=== PATIENT | female | born 2000 | race Caucasian/White ===

== ENCOUNTER 2024-01-18 18:50 | Emergency (ER) | payer OTHER, SELFPAY ==
[2024-01-18] VITALS (7 sets, daily range): BP systolic 106–121; BP diastolic 52–70; PULSE 71–79; RESP 18; TEMP 36.7; O2SAT 98–100; BMI 24.9
--- NOTE | ~2024-01-18 | CT_ITS ---
EXAMINATION: CT HEAD WITHOUT CONTRAST CLINICAL INFORMATION: Frontal headache. Vomiting. COMPARISON: None available. TECHNIQUE: Contiguous axial imaging was performed from the skull base to vertex without intravenous administration of contrast. This CT examination was performed using dose optimization techniques as appropriate, variously including the following: *Automated exposure control. *Adjustment of mA and/or kV according to patient size (this includes techniques or standardized protocols for targeted exams where dose is matched to indication/reason for exam; i.e. extremities or head). *Use of iterative reconstruction technique. DLP: 605 mGy-cm FINDINGS: There is no evidence of acute intracranial hemorrhage or edematous territorial infarction. James-white matter differentiation is preserved. There is no abnormal attenuation within the brain parenchyma. The ventricles are normal in morphology and size. No evidence for obstructive hydrocephalus. The suprasellar cistern remains widely patent. Normal positioning of the cerebellar tonsils. No abnormal mass effect or midline shift. No extra-axial fluid collections. No acute soft tissue or osseous abnormalities. The mastoid air cells and visualized paranasal sinuses are clear. CT/CT head/brain wo IV con IMPRESSION: No evidence of acute intracranial hemorrhage or edematous territorial infarction. Electronically signed by: Dov Arvizu DO 01/18/2024 10:53 PM EDT
--- NOTE | 2024-01-18 19:28 | ED.DIZZY ---
HPI - Dizziness General Chief Complaint: General Medical Stated Complaint: dizzy Time Seen by Provider: 01/18/24 21:02 Source: patient, RN notes reviewed and old records reviewed Mode of arrival: ambulatory Limitations: no limitations History of Present Illness ED Provider: Amanda BELTRAN Narrative: 23-year-old female who denies any past medical history presents for evaluation of headache and dizziness. Patient reports around 1:00 p.m. today she developed a frontal headache with associated dizziness, nausea and vomiting. She reports that yesterday she had some body aches and a nonproductive cough. The patient reports that around 4:00 p.m. today, she ?could not move my left arm. ? She reports that this lasted about 10 minutes before completely resolving. She reports a similar episode of headache, nausea and vomiting about a year ago. She reports at that time she fell and hit her head, there was no fall or trauma prior to today's episode She reports that her nausea and vomiting has resolved but still complains of a frontal headache with some dizziness when standing She has no other complaints or concerns at this time Related Data Allergies Allergy/AdvReac Type Severity Reaction Status Date / Time No Known Allergies Allergy Verified 01/18/24 19:29 [No Known Allergies*] Review of Systems Constitutional: Constitutional: Denies body ache(s), Denies chills, Denies fever(s), Denies frequent falls and Reports headache(s) Eyes: Eyes: Denies blurry vision and Denies loss of vision ENT: Reports dizziness, Denies dry mouth and Reports headache(s) Cardiovascular: Cardiovascular: Denies chest pain, Denies syncope and Denies dyspnea Respiratory: Respiratory: Denies cough and Denies dyspnea Gastrointestinal: Gastrointestinal: Denies abdominal pain, Reports nausea and Reports vomiting Musculoskeletal: Musculoskeletal: Denies back pain Integumentary/Breasts: Skin/Breast: Denies rash Neurologic: Denies confusion, Reports dizziness, Denies syncope, Denies frequent falls, Reports headache(s), Denies focal weakness, Denies loss of vision and Denies memory loss Psychiatric: Psychiatric: Denies confusion and Denies memory loss [facility] Social History Social History Smoked in Last 30 Days: No Use of substances other than those prescribed or required for medical reasons: No Advance Directives: No Advance Directives Information Provided: No Do you have a plan to hurt others: No Plan Patient : No Physical Exam Vital Signs: Vital Signs: Last Vital Signs Temp 98.0 F 01/18/24 19:27 Pulse 76 01/18/24 21:41 Resp 18 01/18/24 21:41 BP 121/62 01/18/24 21:41 Pulse Ox 98 01/18/24 21:41 O2 Del Method Room Air 01/18/24 21:41 BMI result Body Mass Index 24.9 Const: General: No confusion Nutritional Appearance: well nourished Orientation/consciousness: No confusion HEENT: Head: Yes normocephalic and Yes atraumatic Throat: Yes posterior oropharynx normal Eyes: Eyelids: Yes eyelids normal Conjunctivae: conjunctivae normal Sclerae: sclerae normal Corneas: corneas normal Pupils: Equal, round and reactive pupils present EOM: EOMs intact bilaterally Neck: Neck: Yes full ROM Resp: Effort & Inspection: normal respiratory effort, able to speak in complete sentences, no audible wheezes and not labored Auscultation: clear to auscultation bilaterally GI: Inspection: No distended Palpation (GI): Soft to palpation, not firm, nontender, no guarding and not rigid Skin: General skin exam: no rashes or lesions noted and elasticity normal Neuro: General: No confusion Cranial nerves: Yes CN's II-XII intact bilaterally, Yes Equal, round and reactive pupils present and Yes Bilaterally intact EOM present Cognition (Neuro): normal cognition Motor exam (neuro): 5/5 motor strength present throughout Coordination: [id number] test normal and tandem gait normal Romberg Test: Negative Course Course Course Narrative: This is a Rapid Medical Exam performed in triage by Bri Jean-Baptiste PA-C. Full HPI, ROS and PE to be performed by primary ED provider. 23 yo F presenting to the ED c/o dizziness described spinning, nausea, vomiting and shakiness x 1300 today while at work. Also reports cough w/post tussive emesis, headache & sick contacts. denies abd pain PE: pale, uncomfortable, no focal deficits, ambulating with steady gait, abdomen soft/nontender Plan: EKG, labs, UA, viral testing Medications Administered Discontinued Medications Generic Name Dose Route Start Last Admin Trade Name Freq PRN Reason Stop Dose Admin Acetaminophen/Butalbital/Caffeine 1 tab 01/18/24 22:19 01/18/24 22:23 Butalb/Acetamin/Caff 50/325/40 Tablet PO 01/18/24 22:20 1 tab ONCE ONE Administration Medical Decision Making Medical Decision Making [facility] Narrative: This is a healthy 23-year-old female presenting for evaluation of headache and dizziness. Her symptoms started at work. She reports a history of similar. She may have undiagnosed migraine/headaches. However given her reported sudden onset of symptoms as well as reported difficulty moving her left arm we will get a CT scan of the brain. She has no risk factors for CVA and currently has an NIH stroke score of 0 so I feel this is less likely. We will treat her headache with Fioricet pending CT scan, the patient is not , labs show no concerning findings. Furthermore, I have a low suspicion for subarachnoid hemorrhage, the patient has no neck pain, no meningeal signs Differential Diagnosis Differential Diagnoses: The differential diagnosis associated with the presentation includes Acute headache Migraine headache Intracranial mass Viral syndrome Tension headache Lab Data [facility] Lab Attestation statement: I reviewed the patient's lab results. No leukocytosis, the patient has a mild anemia with a hemoglobin of 11.9 and hematocrit of 35.3. This is normocytic and could reflect her baseline but we have no previous labs for comparison. Electrolytes within normal limits. Serology testing negative for the flu, RSV, COVID-19 01/18/24 19:44 01/18/24 19:44 Labs: Lab Results 01/18/24 Range/Units 19:44 WBC 8.9 (4.8-10.8) X10*3/uL RBC 4.19 L (4.20-5.50) X10*6/uL Hgb 11.9 L (12.0-16.0) g/dl Hct 35.3 L (37.0-47.0) % MCV 84.2 (80.0-98.0) fL MCH 28.4 (27.0-33.0) pg MCHC 33.7 (31.0-35.0) g/dl RDW 11.9 (11.0-16.0) % Plt Count 187 (160-400) X10*3/uL MPV 11.6 (9.4-12.3) fL Immature Gran % (Auto) 0.2 (0.0-0.4) % Neut % (Auto) 89.3 H (45-73) % Lymph % (Auto) 7.7 L (20-40) % [place] % (Auto) 2.3 (2-11) % Eos % (Auto) 0.2 (0-4) % Baso % (Auto) 0.3 (0-2) % Lymph # (Auto) 0.7 L (1.2-4.9) X10*3/uL [place] # (Auto) 0.2 (0.1-1.2) X10*3/uL Eos # (Auto) 0.0 (0.0-0.4) X10*3/uL Baso # (Auto) 0.0 (0.0-0.2) X10*3/uL Abs Immat Gran (auto) 0.02 (0.00-0.03) X10*3/uL Absolute Neuts (auto) 7.9 (2.0-8.3) x10*3/uL Absolute Nucleated RBC 0.000 (0.0-0.012) X10*3/uL Nucleated RBC % (auto) 0.0 (0.0-0.2) /100WBC PT 12.4 (10.9-12.4) SEC INR 1.1 (0.9-1.1) Sodium 140 (135-145) mmol/L Potassium 4.3 (3.3-5.1) mmol/L Chloride 107 (96-108) mmol/L Carbon Dioxide 22 (22-29) mmol/L Anion Gap 15 (12-20) BUN 10 (9-16) mg/dL Creatinine 0.64 (0.5-1.4) mg/dL Estim Creat Clear Calc 125.4 Estimated GFR > 60 Random Glucose 113 (60-115) mg/dL Calcium 9.4 (8.4-10.2) mg/dL Magnesium 1.9 (1.6-2.6) mg/dL Total Bilirubin 0.7 (0.0-1.0) mg/dL Direct Bilirubin 0.2 (0.0-0.5) mg/dL AST 23 (5-31) U/L ALT 15 (0-31) U/L Alkaline Phosphatase 61 (39-117) U/L Total Protein 7.4 (6.5-8.0) g/dL Albumin 4.4 (3.5-5.0) g/dL Lipase 11 (8-78) U/L Beta HCG, Quant < 2 mIU/mL Influenza Type A (PCR) NEGATIVE (Negative) Influenza Type B (PCR) NEGATIVE (Negative) RSV RNA Qual (PCR) NEGATIVE (Negative) SARS-CoV-2 RNA (RT-PCR) NEGATIVE (Negative) Discharge Plan Discharge Clinical Impression: Headache Patient Disposition: Home, Self-Care Instructions: Acute Headache (ED) Additional Instructions: Your workup in the ER today was reassuring. Your headache may be related to sinus congestion. You may use an [id number] decongestants such as Sudafed or an allergy medication such as Claritin-D or Tea-D Your blood work and CT scan did not show any concerning abnormalities Stand Alone Forms: Work/School Release Print Language: Malay
--- NOTE | 2024-01-18 19:30 | ECG_ITS ---
Test Reason : HEADAHE Blood Pressure : / mmHG Vent. Rate : 080 BPM Atrial Rate : 080 BPM P-R Int : 136 ms QRS Dur : 096 ms QT Int : 382 ms P-R-T Axes : 047 075 048 degrees QTc Int : 440 ms Normal sinus rhythm Normal ECG No previous ECGs available Referred By: Bri Jean-Baptiste Electronically Signed By:MOISÉS ROSS
[2024-01-18 19:50] LABS: MANUAL DIFF FLAG NO
[2024-01-18 19:52] LABS: Basophils Percent Auto 0.3 % (0-2); Eosinophils Percent Auto 0.2 % (0-4); Hematocrit 35.3 % (37.0-47.0); Hemoglobin 11.9 g/dl (12.0-16.0); Imm Gran Abs Auto 0.02 X10*3/uL (0.00-0.03); Imm Gran Pct Auto 0.2 % (0.0-0.4); Lymphocytes Absolute Auto 0.7 X10*3/uL (1.2-4.9); Lymphocytes Percent Auto 7.7 % (20-40); Mean Corpuscular HGB Conc 33.7 g/dl (31.0-35.0); Mean Corpuscular Hemoglobin 28.4 pg (27.0-33.0); Mean Corpuscular Volume 84.2 fL (80.0-98.0); Mean Platelet Volume 11.6 fL (9.4-12.3); Monocytes Absolute Auto 0.2 X10*3/uL (0.1-1.2); Monocytes Percent Auto 2.3 % (2-11); Neutrophils Absolute Auto 7.9 x10*3/uL (2.0-8.3); Neutrophils Percent Auto 89.3 % (45-73); Platelet Count 187 X10*3/uL (160-400); Red Blood Count 4.19 X10*6/uL (4.20-5.50); Red Cell Distribution Width 11.9 % (11.0-16.0); White Blood Count 8.9 X10*3/uL (4.8-10.8)
[2024-01-18 19:58] LABS: INTERNATIONAL NORM RATIO 1.1 (0.9-1.1); Prothrombin Time 12.4 SEC (10.9-12.4)
[2024-01-18 20:12] LABS: Alanine Aminotransferase 15 U/L (0-31); Albumin Level 4.4 g/dL (3.5-5.0); Alkaline Phosphatase 61 U/L (39-117); Anion Gap 15 (12-20); Aspartate Amino Transferase 23 U/L (5-31); Bilirubin Direct 0.2 mg/dL (0.0-0.5); Bilirubin Total 0.7 mg/dL (0.0-1.0); Blood Urea Nitrogen 10 mg/dL (9-16); Calcium 9.4 mg/dL (8.4-10.2); Carbon Dioxide 22 mmol/L (22-29); Chloride 107 mmol/L (96-108); Creatinine Clr Calc Pharmacy 125.4; Estimated Glomerular Filt Rate > 60; Glucose Random 113 mg/dL (60-115); Lipase 11 U/L (8-78); Magnesium 1.9 mg/dL (1.6-2.6); Potassium 4.3 mmol/L (3.3-5.1); Sodium 140 mmol/L (135-145); Total Protein 7.4 g/dL (6.5-8.0)
[2024-01-18 20:30] LABS: Influenza A PCR NEGATIVE (Negative); Influenza B PCR NEGATIVE (Negative); Resp Syncy Virus RNA Qual PCR NEGATIVE (Negative); SARS COV2 PCR INHOUSE NEGATIVE (Negative)
[2024-01-18 21:25] LABS: HCG Quantitative < 2 mIU/mL
[2024-01-18] MEDS: Butalb/Acetamin/Caff 50/325/40 TABLET 1 TAB PO (22:23)
--- NOTE | 2024-01-18 23:37 | PC.NURSE ---
Took over care from MELIA Lau at 23:00, reviewed discharge instructions with pt. pt verbalized understanding, no sign of distress, pt able ambulate with a steady gait. denies any sob or chest pain.
== END 2024-01-18 23:39 | disposition home or self-care (01) ==
PROVIDERS: Physician Assistant; Emergency Provider Emergency Medicine; PCP Internal Medicine
DX: R42 Dizziness and giddiness (principal); R51.9 Headache, unspecified; M79.10 Myalgia, unspecified site; M79.602 Pain in left arm; R05.9 Cough, unspecified; R11.2 Nausea with vomiting, unspecified; Z03.818 Encounter for observation for suspected exposure to other biological agents ruled out; Z79.899 Other long term (current) drug therapy
CPT/HCPCS: 0241U; 70450; 80048; 80076; 83690; 83735; 84702; 85025; 85610; 93005; 99284; 99285

== ENCOUNTER → 2024-01-18 19:30 | Outpatient (BNV) | payer OTHER, SELFPAY | PROVIDERS: Emergency Provider Emergency Medicine; PCP Internal Medicine; Visit Provider Internal Medicine | DX: R51.9 Headache, unspecified (principal) | CPT/HCPCS: 93010 ==